=== PATIENT | male | born 1995 | race Caucasian/White ===

== ENCOUNTER 2024-02-28 19:33 | Emergency (ER) | payer BC, SELFPAY ==
[2024-02-28 19:35] VITALS: BP 126/67
[2024-02-28 19:57] LABS: % Basophils 0.3 % (0-2); % Eosinophils 3.2 % (0-6); % Immature Granulocytes 0.3 % (0-0.5); % Lymphocytes 37.9 % (20.5-51.1); % Monocytes 10.7 % (1.7-9.3); % Neutrophils 47.6 % (42.2-75.2); Absolute Eosinophils 0.3 10^3/uL (0-0.7); Absolute Lymphocytes 3.8 10^3/uL (1.2-3.4); Absolute Monocytes 1.1 10^3/uL (0.1-0.6); Absolute Neutrophils 4.8 10^3/uL (1.4-6.5); Hematocrit 39.2 % (39.0-52.0); Hemoglobin 13.5 g/dL (13.0-18.0); Mean Corp Hgb Conc. 34.4 g/dL (33.0-37.0); Mean Corpuscular Hgb 29.3 pg (27.0-31.0); Mean Platelet Volume 9.9 fL (7.4-10.4); Nucleated Red Blood Cells % 0 % (-); Platelet Count 264 10^3/uL (130-400); Red Blood Cell Count 4.61 10^6/uL (4.70-6.10); Red Cell Dist. Width 13.1 % (11.5-14.5); White Blood Cell Count 10.1 10^3/uL (4.8-10.8)
[2024-02-28 20:06] LABS: ALT (SGPT) 59 U/L (0-50); AST (SGOT) 31 U/L (17-59); Albumin 4.1 g/dl (3.5-5.0); Alkaline Phosphatase 72 U/L (38-126); Blood Urea Nitrogen 19 mg/dl (9-20); Calcium 9.3 mg/dl (8.4-10.2); Carbon Dioxide 25 mmol/L (22-30); Chloride 104 mmol/L (98-107); Glucose 95 mg/dl (70-99); Potassium 4.2 mmol/L (3.5-5.1); Sodium 137 mmol/L (135-145); Total Bilirubin 0.3 mg/dl (0.2-1.3); Total Protein 6.7 g/dl (6.3-8.2); eGFR > 60.00
[2024-02-28 20:21] LABS: Urine Albumin Negative (Neg - Trace); Urine Bilirubin Negative (Negative); Urine Character Clear (Clear); Urine Color Yellow; Urine Glucose Negative (Negative); Urine Ketone Negative (Negative); Urine Leukocyte Negative (Negative); Urine Nitrite Negative (Negative); Urine Occult Blood Negative (Negative); Urine Specific Gravity 1.015 (<1.030); Urine Urobilinogen Negative (Neg - 1+)
[2024-02-28 21:19] VITALS: BP 100/57
--- NOTE | 2024-02-28 21:22 | ED.GENMED ---
History of Present Illness
General
Chief Complaint: Abdominal Symptoms
Source: patient
Exam Limitations: none
Time Seen by Provider: 02/28/24 20:36
History of Present Illness
History of Present Illness:
This is a 28 year old male that comes in with c/o left side abd pain. States that this increases with urination. State that this started last night and moves into the left testicle. Denies any fever, chills, chest pain, SOB, nausea, vomiting,
diarrhea, headache, dizziness, urinary burning.
Past History
Past History
ED Past Medical History: Other (Diverticulitis. )
ED Past Surgical History: None
Social History
Tobacco: Non-smoker
Alcohol: None
Drug: Marijuana
Personal: Single
Living: with family
Review of Systems
Review of Systems
All Other Systems: ROS reviewed and negative except as documented in HPI and ROS
Constitutional: Reports no symptoms; Denies fever or chills
EENT: Reports no symptoms
Respiratory: Reports no symptoms; Denies cough or trouble breathing
Cardiac: Reports no symptoms; Denies chest pain
ABD/GI: Reports abdominal pain; Denies nausea, vomiting or diarrhea
: Reports other (Pain into the left testicle); Denies dysuria, frequency or flank pain
Musculoskeletal: Reports no symptoms
Skin: Reports no symptoms
Neurological: Reports no symptoms; Denies dizzy or headache
Psychiatric: Reports no symptoms
Phy Exam
General Physical Exam
General Presentation: well appearing and no apparent distress
General age: appears stated age
General Skin: warm and dry
General Habitus: normal
General Mental: alert
General Hydration: appears well hydrated
ENT Exam
ENT Exam: TM's normal, pharynx normal and neck supple
Eye Exam
Eye Exam: EOMI
Cardiovascular Exam
Cardiovascular Exam: regular rate/rhythm, no edema, no murmur and normal peripheral pulses
Pulmonary Exam
Pulmonary Exam: lungs clear, no respiratory distress, no rales, chest non tender, no crackles, no rhonchi, no wheezing and no cough
Gastrointestinal Exam
Gastrointestinal Exam: normal bowel sounds, soft, no organomegaly, no pulsatile mass, non distended and tender (LLQ tenderness with palpation)
Musculoskeletal Exam
Musculoskeletal Exam: full ROM and no edema
Skin Exam
Skin Exam: normal color, warm/dry, no rash and no petechia
Psychiatric Exam
Psychiatric Exam: normal mood/affect
Course
Orders/Labs/Results
Orders:
Orders
02/28/24 19:41
Complete Blood Count/With Diff Urgent
Comprehensive Metabolic Panel Urgent
02/28/24 20:10
Urinalysis Reflex To Culture Urgent
Date Specimen was Collected: 02/28/24
Time Specimen was Collected: 19:39
02/28/24 20:45
CT Abd/pelvis W Iv Cont Urgent
Comment:
Reason For Exam: lEFT LOWER ABD PAIN
0.9% Sodium Chloride 500 ml [Nss] 500 ml IV BOLUS
02/28/24 22:27
Ketorolac [Toradol] 30 mg IV NOW STA
Abnormal Lab Results
02/28/24
19:41
RBC 4.61 L 10^6/uL
(4.70-6.10)
Absolute Lymphs (auto) 3.8 H 10^3/uL
(1.2-3.4)
Absolute Monos (auto) 1.1 H 10^3/uL
(0.1-0.6)
Monocytes % 10.7 H %
(1.7-9.3)
ALT 59 H U/L
(0-50)
02/28/24 19:41
02/28/24 19:41
ALT slightly elevated. Urine negative for infection,.
Vital Signs
Initial and Last Documented VS:
Initial Vital Signs
Temp Pulse Resp BP Pulse Ox
98 F 81 18 126/67 95
02/28/24 19:35 02/28/24 19:35 02/28/24 19:35 02/28/24 19:35 02/28/24 19:35
Last Documented Vital Signs
Temp Pulse Resp BP Pulse Ox
98 F 57 20 110/70 96
02/28/24 19:35 02/28/24 22:29 02/28/24 22:29 02/28/24 22:29 02/28/24 22:29
MDM/Problems Addressed
Differential Diagnosis Includes:
Diverticulitis, Renal calculus
MDM/Problems Addressed:
This is a 28 year old male that comes in with c/o left lower bad pain. State that this started last night and the pain goes into his testicle.
Will get labs and CT scan.
Back into see patient. Explained that there is not diverticulitis but that he has Epiploic appendagitis. This is treated with NSAIDS. Will give patient IV Toradol here and have patient use Ibuprofen 600mg every 6 hours with food for pain. Patient to
return with increased or changing pain, fever, or any other concerns.
Chronic conditions affecting care:
Diverticulitis
Acute Exacerbation and/or Progression of Chronic Illness:
NA
*Radiology
Radiology exam reviewed: radiology read reviewed (CT-Mid descending colon epiploic appendagitis. Incidental hepatic focal nodular hyperplasia. )
*Pulse Oximetry
Patient hypoxic: no
*EKG
Interpreted by ED Provider?: NA
Rate: EKG- N/A
*Patient Registration Specialist Interpretation
Rate: Patient Registration Specialist- N/A
*Critical Care Note
Total Time (30-74mins, 75-104mins- exclusive of procedures): Not Applicable
ED Attending Note
-
Portions of this chart may have been created with voice recognition software.� Occasional wrong word or��sound alike� substitutions may have occurred due to the inherent limitations of voice recognition software.
Discharge Plan
Departure
Patient Disposition: Home (Routine Discharge)
Date of Disposition: 02/28/24
Time of Disposition: 22:33
Patient with high blood pressure during this ER visit?: No
Condition: Good
Covid-19: Not Applicable
Discharge Problem:
Epiploic appendagitis
Instructions: Abdominal Pain
Prescriptions:
No Action
ibuprofen 100 MG tablet
200 mg PO Q6HPRN PRN (Reason: L hand pain) Qty: 30 0RF
Referrals:
NONE,* [Family Provider] -
Activity Restrictions/Additional Instructions:
As discussed, your blood work shows that your One liver enzyme is slightly elevated. Otherwise your labs are normal. Your Urine is negative for infection. Your CT scan is negative for any diverticulitis. This is an inflammatory process that is
treated with NSAIDS. Please take Ibuprofen 600mg every 6 hours with food for pain as needed. Follow up with the family doctor for recheck. IF YOU HAVE FEVER, INCREASED OR CHANGING PAIN, OR YOU HAVE ANY OTHER CONCERNS PLEASE RETURN TO THE EMERGENCY
ROOM.
Interventions
Interventions:
*Risk Screen - Suicide Last Done: 02/28/24 19:35
*General Assessment Last Done: 02/28/24 19:35
*Neglect/Abuse Screening Last Done: 02/28/24 19:35
MB-Fkjoul-Gufjcnobab Assessment Last Done: 02/28/24 21:13
Discharge Date and Time
Print Language: CYMRO
[2024-02-28] MEDS: NSS 500 IV (22:22)
[2024-02-28 22:29] VITALS: BP 110/70
[2024-02-28] MEDS: TORADOL 30 MG IV (22:33)
== END 2024-02-28 23:01 | disposition home or self-care (01) ==
LOC: EMR 19:33
PROVIDERS: Emergency Medicine; EMERGENCY PHYSICIAN Student in an Organized Health Care Education/Training Program
DX: R10.9 Unspecified abdominal pain (principal)
CPT/HCPCS: 99284; 96374; 96361; 74177; 80053; 81003; 85025; Q9967